=== PATIENT | female | born 1960 | race Native Hawaiian/Other Pacific Islander ===

== ENCOUNTER 2019-01-23 07:54 | Day surgery (SDC) | payer OTHER ==
[2017-06-28 14:56] VITALS: BMI 27.9
[2019-01-23] MEDS ORDERED: Propofol 10 mg/ml Inj (20 ML) ONE (09:30)
[2019-01-23] MEDS ORDERED: Simethicone 40 mg/0.6 ml Liquid (30 ml) ONE (09:53)
[2019-01-23] MEDS ORDERED: Sodium Chloride 0.9% 1,000 ML IV SCH (10:00)
[2019-01-23 12:18] VITALS: BP 122/69; PULSE 59; RESP 16; TEMP 97.9; O2SAT 100
== END 2019-01-23 11:42 | disposition home or self-care (01) ==
LOC: ENDO 07:54
PROVIDERS: ATTEND Internal Medicine Gastroenterology
DX: K92.1 Melena (principal); K64.8 Other hemorrhoids; E11.9 Type 2 diabetes mellitus without complications
CPT/HCPCS: 45378; J2001; J2704; J7030